=== PATIENT | female | born 1990 ===

== ENCOUNTER 2017-01-26 18:20 | Emergency (ER) | payer MEDICAID ==
[2017-01-26 18:31] VITALS: BP 119/71; PULSE 75; RESP 18; TEMP 97.8; O2SAT 99
--- NOTE | 2017-01-26 20:42 | ED PDOC ---
HPI: Abdomen Time Seen by Provider: 01/26/17 19:00 Chief Complaint (Nursing): Abdominal Pain Chief Complaint (Provider): Cramping abdominal pain History Per: Patient History/Exam Limitations: no limitations Onset/Duration Of Symptoms: Hrs Outside of [place] travel?: No Current Symptoms Are (Timing): Still Present Additional Complaint(s): The patient is a 26yo female, , states she had her IUD taken out 1.5 months ago and states she took a home test at home which was positive. She presents today for evaluation of lower abdominal cramping. Patient reports she informed her PCP Dr. Duong, who informed if symptoms persist, patient should visit the ED for further evaluation. She denies any nausea, vomiting, diarrhea, abnormal vaginal discharge or bleeding. She offers no other complaints. Abnormal Vaginal Bleeding: No : 2 Para: 1 Past Medical History Reviewed: Historical Data, Nursing Documentation, Vital Signs Vital Signs: Last Vital Signs Temp 97.8 F 01/26/17 18:28 Pulse 75 01/26/17 18:28 Resp 18 01/26/17 18:28 BP 119/71 01/26/17 18:28 Pulse Ox 99 01/26/17 22:53 - Medical History PMH: Asthma, Gastritis Denies: Migraine, Chronic Kidney Disease - Surgical History Surgical History: No Surg Hx - Family History Family History: States: No Known Family Hx - Home Medications Home Medications: Ambulatory Orders Medication Instructions Recorded Esomeprazole Magnesium [Nexium] 40 mg PO PRN PRN 03/26/16 Famotidine [Pepcid] 20 mg PO PRN PRN 03/26/16 Ondansetron ODT [Zofran ODT] 4 mg PO PRN PRN 03/26/16 Ondansetron ODT [Zofran ODT] 4 mg PO QID #20 odt 03/26/16 - Allergies Allergies/Adverse Reactions: Allergies Allergy/AdvReac Type Severity Reaction Status Date / Time Penicillins Allergy RASH Verified 01/26/17 18:28 Review of Systems ROS Statement: Except As Marked, All Systems Reviewed And Found Negative Gastrointestinal: Positive for: Abdominal Pain (lower abdomen). Negative for: Nausea, Vomiting, Diarrhea Genitourinary Female: Negative for: Vaginal Discharge, Vaginal Bleeding Physical Exam - Reviewed Nursing Documentation Reviewed: Yes Vital Signs Reviewed: Yes - Physical Exam Appears: Positive for: Non-toxic, No Acute Distress (no symptoms right now) Head Exam: Positive for: ATRAUMATIC, NORMAL INSPECTION, NORMOCEPHALIC Skin: Positive for: Warm, Dry Eye Exam: Positive for: Normal appearance Neck: Positive for: Supple Cardiovascular/Chest: Positive for: Regular Rate, Rhythm Respiratory: Positive for: Normal Breath Sounds. Negative for: Respiratory Distress Gastrointestinal/Abdominal: Positive for: Normal Exam, Soft. Negative for: Tenderness Neurologic/Psych: Positive for: Alert, Oriented. Negative for: Motor/Sensory Deficits - Laboratory Results Result Diagrams: 01/26/17 20:54 01/26/17 20:54 - ECG O2 Sat by Pulse Oximetry: 99 (RA) Pulse Ox Interpretation: Normal Medical Decision Making Medical Decision Making: Time: 1951 Impression: Early , rule out threatened Plan: -- Labs -- Urinalysis Reassess Time: 2249 US OB Transvaginal IMPRESSION: Live intrauterine , with no evidence of early complications. Labs reviewed and show no clinically significant abnormalities. Patient informed of US and lab findings. Advised to follow up with PCP and if symptoms worsen or new symptoms arise, patient to return to ED for immediate evaluation. Scribe Attestation: Documented by Radha Reyes acting as a scribe for Miguel Leger MD. Provider Attestation: All medical record entries made by the Scribe were at my direction and personally dictated by me. I have reviewed the chart and agree that the record accurately reflects my personal performance of the history, physical exam, medical decision making, and the department course for this patient. I have also personally directed, reviewed, and agree with the discharge instructions and disposition. Disposition - Clinical Impression Clinical Impression: Abdominal pain during - Patient ED Disposition Is Patient to be Admitted: No Counseled Patient/Family Regarding: Studies Performed, Diagnosis, Need For Followup - Disposition Referrals: [facility] [Outside] Disposition: Routine/Home Disposition Time: 21:00 Condition: IMPROVED Additional Instructions: follow up with Dr Clark this week return to the ED with any worsening or concerning symptoms Instructions: Abdominal Pain in (ED) Forms: [employer] (Swazi)
[2017-01-26 21:05] LABS: BASO % 0.2 % (0.0-2.0); EOS # 0.1 K/uL (0.0-0.7); EOS % 0.3 % (0.0-4.0); HEMATOCRIT 38.1 % (34.0-47.0); LYMPH # 3.4 K/uL (1.0-4.3); LYMPH % 19.1 % (20.0-40.0); MEAN CELL VOLUME 87.2 fl (81.0-99.0); MEAN CORPUSCULAR HEMOGLOBIN 29.3 pg (27.0-31.0); MEAN CORPUSCULAR HGB CONC 33.5 g/dL (33.0-37.0); MEAN PLATELET VOLUME 8.7 fl (7.2-11.7); MONO # 1.4 K/uL (0.0-0.8); NEUT # 12.9 K/uL (1.8-7.0); NEUT % 72.4 % (50.0-75.0); RED CELL DISTRIBUTION WIDTH 12.7 % (11.5-14.5); WHITE BLOOD COUNT 17.9 K/uL (4.8-10.8)
[2017-01-26 21:10] LABS: RBC URINE < 1 /hpf (0-3); URINE BACTERIA RARE (<OCC); URINE BILIRUBIN NEGATIVE (NEGATIVE); URINE BLOOD NEGATIVE (NEGATIVE); URINE COLOR YELLOW (YELLOW); URINE GLUCOSE (UA) NEG (Normal); URINE KETONE TRACE mg/dL (NEGATIVE); URINE LEUKOCYTE ESTERASE NEG Leu/uL (Negative); URINE PROTEIN NEGATIVE (NEGATIVE); URINE UROBILINOGEN 0.2-1.0 mg/dL (0.2-1.0); WBC URINE 1 /hpf (0-5)
[2017-01-26 21:22] LABS: ALB/GLOB RATIO 1.4 (1.0-2.1); ALKALINE PHOSPHATASE 57 U/L (38-126); ALT/SGPT 30 U/L (9-52); AST/SGOT 24 U/L (14-36); BILIRUBIN,TOTAL 0.4 mg/dl (0.2-1.3); BLOOD UREA NITROGEN 11 mg/dl (7-17); CALCIUM 9.4 mg/dL (8.4-10.2); CARBON DIOXIDE 23 mmol/L (22-30); CHLORIDE 105 mmol/L (98-107); GFR AFRICAN-AMERICAN > 60; GLUCOSE,RANDOM 88 mg/dL (65-105); POTASSIUM 3.8 MMOL/L (3.6-5.0); SODIUM 140 mmol/l (132-148); TOTAL PROTEIN 7.5 G/DL (6.3-8.2)
--- NOTE | 2017-01-26 22:23 | US ---
EXAM: US , Transvaginal CLINICAL HISTORY: 26 years old, female; Pain; Other: Cramps; Gestational age or lmp: Unknown; ; Additional info: Pelvic pain TECHNIQUE: Real-time transvaginal obstetrical ultrasound of the maternal pelvis and a first trimester with image documentation. Transvaginal imaging was used for better evaluation of the fetus and adnexa. COMPARISON: No relevant prior studies available. FINDINGS: Gestation: The uterus contains a normal gestational sac measuring 2.2 cm. A normal yolk sac is identified measuring 0.4 cm. A normal pole is identified measuring 6 mm. Embryonic/ cardiac activity is identified, at a rate of 129 beats per minute. Measurements correlate with a mean gestational age of 6 weeks 4 days. Placenta/amniotic fluid: Cannot be adequately evaluated due to the early gestational age. Uterus/cervix: The uterus measures 8.4 x 4.8 x 5.6 cm. The cervix is closed measuring 3.7 cm. There is a 1.4 cm septated cyst in the RIGHT ovary. Ovaries: The LEFT ovary measures 2.5 x 2.2 x 2.1 cm. The RIGHT ovary measures 3.6 x 1.5 x 2.4 cm. Duplex assessment demonstrates normal flow in both ovaries. Free fluid: No free fluid. IMPRESSION: Live intrauterine , with no evidence of early complications.
== END 2017-01-26 23:14 | disposition home or self-care (01) ==
LOC: H.ER 18:20
DX: O26.899 Other specified pregnancy related conditions, unspecified trimester (principal); Z88.0 Allergy status to penicillin

== ENCOUNTER 2017-04-08 21:29 | Emergency (ER) | payer MEDICAID ==
[2017-04-08] MEDS ORDERED: Albuterol 0.083% Inhal Sol (2.5 mg/3 mL) UD INH ONE (22:12)
--- NOTE | 2017-04-08 22:15 | ED PDOC ---
HPI: Asthma Time Seen by Provider: 04/08/17 21:52 Chief Complaint (Nursing): Cough, Cold, Congestion Chief Complaint (Provider): "asthma attack" History Per: Patient History/Exam Limitations: no limitations Onset/Duration Of Symptoms: Days (1) Current Symptoms Are (Timing): Still Present Associated Symptoms: Cough Additional History Per: Patient Additional Complaint(s): 26 y/o female, approximately 17 weeks gestation, history of asthma presents with productive cough x 1 day. Patient states she had two asthma attacks today ; was advised by her [employer] Breaker Dr. Duong to take Robitussin, Viola, and Albuterol treatment if the first two do not offer relief. Patient states she had to give herself two treatments today and still notes cough, post-tussive vomiting of phelgm, and chest tightness. Patient now notes "pressure" to lower abdomen, and was advised by her [employer] Breaker to come to ED. Denies fever, ear pain, nasal congestion, chest pain, shortness of breath, palpitations, vaginal bleeding/discharge, urinary symptoms, recent travel, sick contacts. Past Medical History Reviewed: Historical Data, Nursing Documentation, Vital Signs Vital Signs: Last Vital Signs Temp 98.4 F 04/08/17 21:44 Pulse 117 H 04/08/17 21:44 Resp 18 04/08/17 21:44 BP 143/69 04/08/17 21:44 Pulse Ox 100 04/08/17 21:44 - Medical History PMH: Asthma, Gastritis Denies: Migraine, Chronic Kidney Disease - Surgical History Surgical History: No Surg Hx - Family History Family History: States: No Known Family Hx - Living Arrangements Living Arrangements: With Family - Home Medications Home Medications: Ambulatory Orders Medication Instructions Recorded Esomeprazole Magnesium [Nexium] 40 mg PO PRN PRN 03/26/16 Famotidine [Pepcid] 20 mg PO PRN PRN 03/26/16 Ondansetron ODT [Zofran ODT] 4 mg PO PRN PRN 03/26/16 Ondansetron ODT [Zofran ODT] 4 mg PO QID #20 odt 03/26/16 Albuterol HFA [Ventolin HFA 90 1 - 2 puff IH Q6 PRN #1 inh 04/09/17 mcg/actuation (8 g)] predniSONE [Prednisone] 40 mg PO DAILY #8 tab 04/09/17 - Allergies Allergies/Adverse Reactions: Allergies Allergy/AdvReac Type Severity Reaction Status Date / Time Penicillins Allergy RASH Verified 04/08/17 21:47 Review of Systems ROS Statement: Except As Marked, All Systems Reviewed And Found Negative Respiratory: Positive for: Cough, Sputum Genitourinary Female: Positive for: Pelvic Pain Physical Exam - Reviewed Nursing Documentation Reviewed: Yes Vital Signs Reviewed: Yes - Physical Exam Appears: Positive for: Well, Non-toxic, No Acute Distress Head Exam: Positive for: ATRAUMATIC, NORMAL INSPECTION, NORMOCEPHALIC Skin: Positive for: Normal Color Eye Exam: Positive for: Normal appearance ENT: Positive for: Normal ENT Inspection Cardiovascular/Chest: Positive for: Regular Rate, Rhythm Respiratory: Positive for: Normal Breath Sounds Gastrointestinal/Abdominal: Positive for: Bowel Sounds, Soft, Tenderness (rlq, suprapubic discomfort to deep palpation). Negative for: Distended, Guarding, Rebound Back: Positive for: Normal Inspection Extremity: Positive for: Normal ROM Neurologic/Psych: Positive for: Alert, Oriented - ECG O2 Sat by Pulse Oximetry: 100 - Progress ED Course And Treament: flu, ob u/s, albuterol neb On re-eval, patient admits to slight improvement. Duoneb ordered EXAM: US Uterus, Limited EXAM DATE/TIME: 04/08/2017 10:11 PM CLINICAL HISTORY: 26 years old, female; Signs and symptoms; Lmp or gestational age (in weeks): Unknown; Other: Vomitting/nausea; ; Additional info: Approx 17 wks gestation, pelvic pressure TECHNIQUE: Real-time ultrasound of the maternal uterus (limited) with image documentation. COMPARISON: No relevant prior studies available. FINDINGS: Prior ultrasound report 01/26/2017 describes single live IUP 6 weeks 4 days. There is a live intrauterine . Measurements of the biparietal diameter, head circumference, abdominal circumference, femur length correspond to gestational age of 17 weeks 2 days. A heart rate of 163 beats per minute was obtained. That is posterior in location and appears normal. The cervix measures 5.3 cm and appears closed. The maternal ovaries are not identified. IMPRESSION: Single live IUP. On re-eval, patient states she is feeling better. Case discussed with Dr. Duong, agrees with plan to discharge with rx Prednisone (dose given in ED). Advised to continue Albuterol nebs PRN. Return precautions given. Although improved since arrival, repeat HR 110, which could be attributed to patient receiving 2 albuterol treatments in ED. Patient states she feels better. Stable for discharge Disposition - Clinical Impression Clinical Impression: Bronchospasm - Patient ED Disposition Is Patient to be Admitted: No Counseled Patient/Family Regarding: Studies Performed, Diagnosis, Need For Followup, Rx Given - Disposition Disposition: Routine/Home Disposition Time: 02:00 Condition: IMPROVED Additional Instructions: Call Dr. Duong's office in the morning to schedule follow up appointment. Take medication as directed. Return to ED for fever, worsening cough, chest pain, shortness of breath, or other concerning symptoms. Prescriptions: Albuterol HFA [Ventolin HFA 90 mcg/actuation (8 g)] 1 - 2 puff IH Q6 PRN #1 inh PRN Reason: Wheezing predniSONE [Prednisone] 40 mg PO DAILY #8 tab Instructions: Bronchospasm (ED) Forms: [facility] (Bhutanese), [facility] ED School/Work Excuse
[2017-04-08] MEDS ORDERED: Albuterol 0.042% Inhal Sol (1.25 mg/3 mL) UD ONE ×2 (22:18→22:26)
[2017-04-08 23:44] VITALS: BP 113/56; RESP 20
[2017-04-09 00:11] VITALS: TEMP 98.9
[2017-04-09] MEDS ORDERED: Albuterol-Ipratrop 3 mg / 0.5 (3 ml) UD IH STA (00:18)
--- NOTE | 2017-04-09 00:31 | US ---
EXAM: US Uterus, Limited EXAM DATE/TIME: 04/08/2017 10:11 PM CLINICAL HISTORY: 26 years old, female; Signs and symptoms; Lmp or gestational age (in weeks): Unknown; Other: Vomitting/nausea; ; Additional info: Approx 17 wks gestation, pelvic pressure TECHNIQUE: Real-time ultrasound of the maternal uterus (limited) with image documentation. COMPARISON: No relevant prior studies available. FINDINGS: Prior ultrasound report 01/26/2017 describes single live IUP 6 weeks 4 days. There is a live intrauterine . Measurements of the biparietal diameter, head circumference, abdominal circumference, femur length correspond to gestational age of 17 weeks 2 days. A heart rate of 163 beats per minute was obtained. That is posterior in location and appears normal. The cervix measures 5.3 cm and appears closed. The maternal ovaries are not identified. IMPRESSION: Single live IUP.
[2017-04-09 00:38] VITALS: O2SAT 100
[2017-04-09] MEDS ORDERED: Albuterol-Ipratrop 3 mg / 0.5 (3 ml) UD ONE (00:47)
[2017-04-09 02:09] VITALS: PULSE 110
== END 2017-04-09 02:05 | disposition home or self-care (01) ==
LOC: H.ER 21:29
DX: O99.512 Diseases of the respiratory system complicating pregnancy, second trimester (principal); J45.909 Unspecified asthma, uncomplicated; Z3A.17 17 weeks gestation of pregnancy; Z88.0 Allergy status to penicillin; Z36.9 Encounter for antenatal screening, unspecified

== ENCOUNTER 2017-06-15 19:11 | Inpatient (IN) | payer MEDICAID ==
[2017-06-15 19:31] VITALS: BMI 32.9
[2017-06-15 20:27] LABS: SQUAMOUS EPITHIAL 4 /hpf (0-5); URINE BACTERIA RARE (<OCC); URINE BILIRUBIN NEGATIVE (NEGATIVE); URINE BLOOD NEGATIVE (NEGATIVE); URINE CLARITY TURBID (Clear); URINE COLOR AMBER (YELLOW); URINE GLUCOSE (UA) NEG (Normal); URINE LEUKOCYTE ESTERASE NEG Leu/uL (Negative); URINE NITRATE NEGATIVE (NEGATIVE); URINE PROTEIN NEGATIVE (NEGATIVE); URINE UROBILINOGEN 0.2-1.0 mg/dL (0.2-1.0)
[2017-06-15] MEDS ORDERED: Lactated Ringer's 1,000 ML IV SCH ×2 (21:00→23:00)
[2017-06-15] MEDS ORDERED: Magnesium Sul 40GM/1L SW 40 GM/1,000 ML ML IV ONE (22:11)
[2017-06-15] MEDS ORDERED: Magnesium Sulfate 4 gm/100 ml 4 GM/100 ML BAG IV ONE (22:11)
[2017-06-15] MEDS ORDERED: AMPicillin 2 GM in Sodium Chloride 0.9% 100 ML IVPB STA (22:17)
[2017-06-15] MEDS ORDERED: AMPicillin 1 GM in Sodium Chloride 0.9% 100 ML IVPB SCH (22:30)
--- NOTE | 2017-06-15 22:32 | OBHP ---
Datetime: 06/15/2017 20:53 IP Adm Impression: , intrauterine IP Admit Plan: Admit to unit; Observation/Evaluation Admit Comment, IP Provider: 27 yo at 26+4 wks w/ EDC by 6+ wks u/s who reports sasha t she has had back pain that causes left leg numbness for a while now and then started cramping last night reports slight cramps now, denies VB and LOF, reports FM. Pt reports that she is currently fin ishing a macrobid course for bacteria in the urine. Pt reports that she was on brethine for PT ctxns w/ her last and delivered at 36 weeks. Pt reports that she has an appoint for cervical le ngthg measurment on ., 06/18/2017. 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 Duong Will admit her to L_D for PTL. Will give Betamethasome for FLM, will start IV magnesium, and IV V ancomycin for GBS prophylaxis. Plan discussed w/ pt. Extremities - PN: Normal Abdomen - PN: Normal Lungs - PN: Normal Heart - PN: Normal General - PN: Normal FHR - Baseline A Provider: 140s Contraction Comments Provider: irregular EGA AdmitDate IP: 17.6 Vital Signs Provider: Reviewed IP Chief Complaint: Uterine contractions NICHD Variability Prov Fetus A: Moderate 6-25bpm Dilatation, Provider: 0 Effacement, Provider: 0 Station, Provider: -3 Genitourinary Exam: Normal
--- NOTE | 2017-06-15 22:37 | OBADHP ---
Datetime: 06/15/2017 22:32 Admit Comment, IP Provider: 27 yo at 26+4 wks w/ EDC by 6+ wks u/s who reports sasha t she has had back pain that causes left leg numbness for a while now and then started cramping last night reports slight cramps now, denies VB and LOF, reports FM. Pt reports that tail bone hurts from lying on he stretcher. All other systems reviewed and negative. Pt reports that she is currently f inishing a macrobid course for bacteria in the urine. Pt reports that she was on brethine for PT ctx ns w/ her last and delivered at 36 weeks. Pt reports that she has an appoint for cervical length measurment on ., 06/18/2017. 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 Duong Will admit her to L_D for PTL. Will give Betamethasome for FLM, will start IV magnesium, and IV V ancomycin for GBS prophylaxis. Plan discussed w/ pt. Extremities - PN: Normal Abdomen - PN: Normal Back - PN: Normal Heart - PN: Normal Neurologic - PN: Normal General - PN: Normal FHR - Baseline A Provider: 140's Vital Signs Provider: Reviewed; Within Normal Limits IP Chief Complaint: Uterine contractions NICHD Variability Prov Fetus A: Moderate 6-25bpm Dilatation, Provider: 0 Effacement, Provider: 0 Station, Provider: -3 Genitourinary Exam: Normal EGA AdmitDate IP: 18.0 IP Adm Impression: , intrauterine IP Admit Plan: Admit to unit; Initiate labor protocol Datetime: 06/15/2017 20:53 Lungs - PN: Normal Contraction Comments Provider: irregular
[2017-06-16] MEDS: Betamethasone Soluspan 30 mg/5mL Inj Susp IM SCH ×2 (00:23→18:02)
[2017-06-16 00:34] LABS: BASO % 0.3 % (0.0-2.0); EOS # 0.1 K/uL (0.0-0.7); EOS % 0.5 % (0.0-4.0); HEMOGLOBIN 11.3 g/dL (12.0-16.0); LYMPH # 2.8 K/uL (1.0-4.3); MEAN CELL VOLUME 87.7 fl (81.0-99.0); MEAN CORPUSCULAR HEMOGLOBIN 29.7 pg (27.0-31.0); MEAN CORPUSCULAR HGB CONC 33.8 g/dL (33.0-37.0); MEAN PLATELET VOLUME 9.5 fl (7.2-11.7); MONO # 1.3 K/uL (0.0-0.8); MONO % 8.5 % (0.0-10.0); NEUT # 10.7 K/uL (1.8-7.0); NEUT % 71.7 % (50.0-75.0); RBC 3.83 Mil/uL (3.80-5.20); RED CELL DISTRIBUTION WIDTH 13.3 % (11.5-14.5); WHITE BLOOD COUNT 14.9 K/uL (4.8-10.8)
[2017-06-16 02:07] VITALS: O2SAT 100
[2017-06-16] MEDS ORDERED: Magnesium Sul 40GM/1L SW 40 GM/1,000 ML ML IV ONE (12:18)
--- NOTE | 2017-06-16 12:32 | OBPN ---
Datetime: 06/16/2017 12:23 IP Progress Plan Other: decrease MgSO4 and give second dose of beta this pm IP Progress Impression Other: UC arrested IP Progress Impression: labor IP Progress Plan: Continue present management Membranes, Provider: Intact Contraction Comments Provider: arrested FHR - Baseline A Provider: 140's Gestation - Est Wks by US: 26wks 5d IP Progress Note Comment: will decrease tocolysis since pt no longer feeling UC and tracing doesnt s how any. For second dose of steroids this pm Discussed plan with pt and agreed Dilatation, Provider: closed Effacement, Provider: none NICHD Decel Fetus A IP Provider: None Datetime: 06/15/2017 22:32 Vital Signs Provider: Reviewed; Within Normal Limits NICHD Variability Prov Fetus A: Moderate 6-25bpm Station, Provider: -3
[2017-06-16 23:16] VITALS: BP 120/77; PULSE 102; RESP 17; TEMP 97.7
== END 2017-06-16 18:30 | disposition home or self-care (01) | DRG 379 ==
LOC: H.EROB2 19:11 → H.L&D 22:59
PROVIDERS: ADMIT Specialist; ATTEND Specialist
PROC: 4A1HXCZ Monitoring of Products of Conception, Cardiac Rate, External Approach (ICD-10-PCS; principal; 2017-06-15)
DX: O60.03 Preterm labor without delivery, third trimester (principal); Z37.0 Single live birth; J45.909 Unspecified asthma, uncomplicated; Z3A.36 36 weeks gestation of pregnancy; O99.513 Diseases of the respiratory system complicating pregnancy, third trimester

== ENCOUNTER 2017-07-21 09:25 | Emergency (ER) | payer MEDICAID ==
[2017-07-21 10:50] VITALS: BMI 34.2
[2017-07-21 12:35] LABS: SQUAMOUS EPITHIAL 3 /hpf (0-5); URINE BACTERIA OCC (<OCC); URINE BILIRUBIN NEGATIVE (NEGATIVE); URINE BLOOD NEGATIVE (NEGATIVE); URINE CLARITY SLIGHTY-CLOUDY (Clear); URINE COLOR YELLOW (YELLOW); URINE GLUCOSE (UA) NEG (Normal); URINE LEUKOCYTE ESTERASE NEG Leu/uL (Negative); URINE PROTEIN NEGATIVE (NEGATIVE); URINE UROBILINOGEN 0.2-1.0 mg/dL (0.2-1.0)
[2017-07-21] MEDS ORDERED: Lactated Ringer's 1,000 ML IV SCH (13:00)
[2017-07-21 22:13] VITALS: BP 103/64; PULSE 89; RESP 18; TEMP 98.1; O2SAT 100
== END 2017-07-21 14:45 | disposition home or self-care (01) ==
LOC: H.EROB2 09:25 → H.EROB 10:01 → H.EROB2 14:45
DX: O47.03 False labor before 37 completed weeks of gestation, third trimester (principal); Z3A.31 31 weeks gestation of pregnancy; O26.93 Pregnancy related conditions, unspecified, third trimester; R10.2 Pelvic and perineal pain
CPT/HCPCS: 81003; 82731; 96360; 99283; J7120

== ENCOUNTER 2017-08-17 16:38 | Emergency (ER) | payer MEDICAID ==
[2017-08-17 17:23] VITALS: BMI 34.4
--- NOTE | 2017-08-17 21:07 | US ---
EXAM: US Duplex Bilateral Upper Extremity Veins CLINICAL HISTORY: 27 years old, female; Pain and signs and symptoms; Swelling of limb; Upper extremity, bilateral; Arn, upper and arm; Additional info: 35wks gestation with bilateral arm pain TECHNIQUE: Real-time duplex ultrasound scan of the bilateral upper extremity veins integrating B-mode two-dimensional vascular structure, Doppler spectral analysis, color flow Doppler imaging and compression. COMPARISON: No relevant prior studies available. FINDINGS: Right deep veins: No DVT in the right internal jugular, subclavian, axillary, or brachial veins. The veins are compressible with normal color flow and augmentation. Right superficial veins: No thrombus in the visualized right basilic and cephalic veins. Left deep veins: No DVT in the left internal jugular, subclavian, axillary, or brachial veins. The veins are compressible with normal color flow and augmentation. Left superficial veins: No thrombus in the visualized left basilic and cephalic veins. Soft tissues: No fluid collection. IMPRESSION: 1. No evidence of DVT within upper extremities.
[2017-08-17 22:15] LABS: BASO % 0.2 % (0.0-2.0); EOS # 0.1 K/uL (0.0-0.7); EOS % 0.8 % (0.0-4.0); HEMOGLOBIN 11.8 g/dL (12.0-16.0); LYMPH # 3.1 K/uL (1.0-4.3); LYMPH % 21.6 % (20.0-40.0); MEAN CELL VOLUME 84.5 fl (81.0-99.0); MEAN CORPUSCULAR HEMOGLOBIN 29.1 pg (27.0-31.0); MEAN CORPUSCULAR HGB CONC 34.5 g/dL (33.0-37.0); MEAN PLATELET VOLUME 9.2 fl (7.2-11.7); MONO % 7.3 % (0.0-10.0); NEUT % 70.1 % (50.0-75.0); RBC 4.06 Mil/uL (3.80-5.20); RED CELL DISTRIBUTION WIDTH 13.2 % (11.5-14.5); WHITE BLOOD COUNT 14.2 K/uL (4.8-10.8)
[2017-08-17 22:17] LABS: SQUAMOUS EPITHIAL < 1 /hpf (0-5); URINE BACTERIA RARE (<OCC); URINE BILIRUBIN NEGATIVE (NEGATIVE); URINE BLOOD NEGATIVE (NEGATIVE); URINE CLARITY CLEAR (Clear); URINE COLOR STRAW (YELLOW); URINE GLUCOSE (UA) NEG (Normal); URINE LEUKOCYTE ESTERASE NEG Leu/uL (Negative); URINE PROTEIN NEGATIVE (NEGATIVE); URINE UROBILINOGEN 0.2-1.0 mg/dL (0.2-1.0)
[2017-08-17 22:22] LABS: ALBUMIN 3.3 g/dL (3.5-5.0); ALT/SGPT 35 U/L (9-52); AST/SGOT 17 U/L (14-36); BLOOD UREA NITROGEN 4 mg/dl (7-17); CALCIUM 9.3 mg/dL (8.4-10.2); GFR AFRICAN-AMERICAN > 60; GFR NON-AFRICAN AMERICAN > 60; URIC ACID 3.5 mg/Dl (2.2-7.5)
--- NOTE | 2017-08-17 23:14 | OBHP ---
Datetime: 08/17/2017 20:05 IP Adm Impression: , intrauterine IP Admit Plan: Observation/Evaluation; Discharge home Admit Comment, IP Provider: 27 yo at 35+4 wks w/ EDC 09/17/2017 by 6 wks u/s, p/w pain and s welling in both arms and hands, started last Thu., Pt reporets that is she lays flat, the pain goes t o her shoulders. Pt reports pain R>L side. Pt reports that the sx have become increasingly worse, n ow waking her from sleep, causing tears. Pt denies any recent trauma. Pt receives her PNC w/ [facility] w/ / Ad. Pt was sent to hospital by Dr. London so that she can have bilateral upper ext remity dopplers done. Of note, pt has GDM, controled w/ metformin 250 BID. 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 U/s upper extremities arterial/ venous- negative PEC labs nl UA negative NST reactive Pt given wrist splints to wear as arm pain likely CTS Pt told she can tylenol for pain Pt has an appointment with Dr. Duong tomorrow Extremities - PN: Abnormal Abdomen - PN: Normal Back - PN: Normal Lungs - PN: Normal Heart - PN: Normal Thyroid - PN: Normal General - PN: Normal FHR - Baseline A Provider: 130's Contraction Comments Provider: Q2-3 EGA AdmitDate IP: 35.4 Vital Signs Provider: Reviewed IP Chief Complaint: Other NICHD Variability Prov Fetus A: Moderate 6-25bpm NICHD Accel Fetus A IP Provider: [id number] NICHD Decel Fetus A IP Provider: None Datetime: 07/21/2017 10:45 Breast - PN: Not Done Membranes, Provider: Intact Pool Provider: Negative IP Hx Assessment: The History has been Reviewed and is Current FHR Category Provider Fetus A: Category I Dilatation, Provider: 0 Effacement, Provider: 0 Datetime: 06/16/2017 12:23 Gestation - Est Wks by US: 26wks 5d Datetime: 06/15/2017 22:32 Neurologic - PN: Normal IP Indication for Induction: Not Applicable Station, Provider: -3 Genitourinary Exam: Normal
--- NOTE | 2017-08-17 23:16 | OBDCSUM ---
Datetime: 08/17/2017 23:08 Discharged to, Provider: Home Follow up at, Provider: Dr Duong Disch Instr Activity: Normal activity Disch Instr Diet: Regular Discharge Instructions, Provider: Routine instructions given Discharge Time: 08/17/2017 23:10 Follow up in weeks, Provider: 08/18/17 Disch Referrals: None Discharge Diagnosis Prov Other: B/l arm pain at 35+ weeks
[2017-08-18 03:50] VITALS: BP 120/64; PULSE 70; RESP 18; TEMP 98.3; O2SAT 100
--- NOTE | 2017-08-18 11:37 | US ---
PROCEDURE: HISTORY: 35wk gestation with bilateral arm pain COMPARISON: None available. TECHNIQUE: Grayscale and duplex Doppler evaluation of the bilateral upper extremities was performed. Report prepared by lead nuclear medicine technologist. FINDINGS: RIGHT UPPER EXTREMITY: * SCA : Peak Systolic Velocity - 126.2: Doppler Waveform: Triphasic.: * Axillary: Peak Systolic Velocity - 100.6: Doppler Waveform: Triphasic.: * Brachial o Peak Systolic Velocity - 62.9: Doppler Waveform: Triphasic.: o Second branchial artery right upper extremity peak systolic velocity 86.8 * Radial o Peak Systolic Velocity - 66.1: Doppler Waveform: Triphasic.: * Ulnar o Peak Systolic Velocity - 52.3: Doppler Waveform: Triphasic.: LEFT UPPER EXTREMITY: * SCA : Peak Systolic Velocity - 122.0: Doppler Waveform: Triphasic.: * Axillary: Peak Systolic Velocity - 72.8: Doppler Waveform: Triphasic.: * Brachial o Peak Systolic Velocity - 64.7: Doppler Waveform: Triphasic.: * Radial o Peak Systolic Velocity - 59.6: Doppler Waveform: Triphasic.: * Ulnar o Peak Systolic Velocity - 48.8: Doppler Waveform: Triphasic.: OTHER FINDINGS: IMPRESSION: There is no evidence of hemodynamically significant arterial insufficiency in both upper extremities.
== END 2017-08-17 23:10 | disposition home or self-care (01) ==
LOC: H.EROB2 16:38
DX: O26.93 Pregnancy related conditions, unspecified, third trimester (principal); M70.941 Unspecified soft tissue disorder related to use, overuse and pressure, right hand; M70.942 Unspecified soft tissue disorder related to use, overuse and pressure, left hand; O24.419 Gestational diabetes mellitus in pregnancy, unspecified control; Z3A.35 35 weeks gestation of pregnancy

== ENCOUNTER 2017-08-23 16:18 | Inpatient (IN) | payer MEDICAID ==
[2017-08-23 16:47] VITALS: BMI 35.5
[2017-08-23] MEDS ORDERED: Clindamycin 600mg/50ml D5W 600 MG/50 ML VIAL IVPB SCH (17:00)
[2017-08-23] MEDS ORDERED: Lactated Ringer's 1,000 ML IV SCH (17:15)
[2017-08-23 17:53] LABS: BASO % 0.3 % (0.0-2.0); EOS # 0.1 K/uL (0.0-0.7); EOS % 0.5 % (0.0-4.0); HEMOGLOBIN 11.8 g/dL (12.0-16.0); LYMPH # 2.9 K/uL (1.0-4.3); LYMPH % 19.7 % (20.0-40.0); MEAN CELL VOLUME 85.3 fl (81.0-99.0); MEAN CORPUSCULAR HEMOGLOBIN 29.1 pg (27.0-31.0); MEAN CORPUSCULAR HGB CONC 34.1 g/dL (33.0-37.0); MONO % 6.9 % (0.0-10.0); NEUT # 10.7 K/uL (1.8-7.0); NEUT % 72.6 % (50.0-75.0); RBC 4.07 Mil/uL (3.80-5.20); RED CELL DISTRIBUTION WIDTH 13.5 % (11.5-14.5); WHITE BLOOD COUNT 14.8 K/uL (4.8-10.8)
[2017-08-23] MEDS ORDERED: Fentanyl/Bupivacaine HCl 250 ML EPI ONE (18:23)
[2017-08-23 18:46] LABS: ALBUMIN 3.3 g/dL (3.5-5.0); ALT/SGPT 22 U/L (9-52); AST/SGOT 18 U/L (14-36); BLOOD UREA NITROGEN 4 mg/dl (7-17); CALCIUM 9.1 mg/dL (8.4-10.2); GFR AFRICAN-AMERICAN > 60; GFR NON-AFRICAN AMERICAN > 60
[2017-08-23] MEDS ORDERED: Oxytocin 30 units/LR 500ML 30 U/500 ML BAG IV ONE (20:37)
[2017-08-23 20:50] LABS: SQUAMOUS EPITHIAL 3 /hpf (0-5); URINE BILIRUBIN NEGATIVE (NEGATIVE); URINE BLOOD MODERATE (NEGATIVE); URINE CLARITY SLIGHTY-CLOUDY (Clear); URINE GLUCOSE (UA) NEG (Normal); URINE LEUKOCYTE ESTERASE NEG Leu/uL (Negative); URINE PROTEIN NEGATIVE (NEGATIVE); URINE UROBILINOGEN 0.2-1.0 mg/dL (0.2-1.0)
[2017-08-23 20:54] LABS: URINE COLOR YELLOW (YELLOW)
--- NOTE | 2017-08-23 22:30 | OBDS ---
MATERNAL INFORMATION Delivery Anesthesia: Epidural Estimated Blood Loss (ml): 250 Other Maternal Complications: labor Provider Comments: delivered a living baby boy appears AGA cried spontaneously 8/9, tight nuch al cord, AF clear Placenta complete and intact Small tear repaired as above Tolerated procedure well No complications Uterus contracted well LABOR SUMMARY EDC: 09/17/2017 00:00 No. Babies in Womb: 1 Attempted: No Labor Anesthesia: Epidural LABOR INFORMATION Reason for Induction: Not Applicable Onset of Labor: 08/23/2017 18:20 Cervical Ripening Agents: Other Other Ripening Agents: n/a Steroids Given: None Reason Steroids Not Administered: Not Applicable VAGINAL DELIVERY Episiotomy: None Laceration Extension: First Degree Laceration Type: Vaginal Laceration Repair: Yes Laceration Repair Note: small left tear below urethra repaired with 2 simple 4-0 chromic without any complications Sponge Count Correct: Yes Sharps Count Correct: Yes CSECTION DELIVERY Primary Indication: N/A Secondary Indication: N/A CSection Incision: N/A Uterine Closure: N/A BABY A INFORMATION Born in Route : No : N/A Forceps: N/A Vacuum Extraction: N/A Shoulder Dystocia : No PRESENTATION/POSITION BABY A Presentation: Cephalic Cephalic Presentation: Vertex Vertex Position: Left Occipital Anterior Breech Presentation: N/A PLACENTA INFORMATION BABY A Placenta Method of Delivery: Spontaneous
[2017-08-23] MEDS ORDERED: Oxycodone/Acetaminophen 5/325 mg Tab PO PRN (22:38)
--- NOTE | 2017-08-23 22:48 | OBADHP ---
Datetime: 08/23/2017 17:36 Admit Comment, IP Provider: This is 27 y/o F, , IUP at 36.3 comes to the [facility] c/o CTX every 4 to 6 mins. Reports good FM, Denies BV/LOF ROS unremarkable pt has GDM, controled w/ metformin 250 BID. 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 Duong --- JPatel, PGY-1 (Annotations: Data stored by CPN on behalf of user) Pelvic Type - PN: Adequate Extremities - PN: Normal Abdomen - PN: Normal Back - PN: Normal Lungs - PN: Normal Heart - PN: Normal Thyroid - PN: Normal Neurologic - PN: Normal HEENT - PN: Normal General - PN: Normal Presentation-Admit: cephalic FHR - Baseline A Provider: 130 Membranes, Provider: Intact Gestation - Est Wks by US: 36+ IP Hx Assessment: The History has been Reviewed and is Current Vital Signs Provider: Reviewed; Within Normal Limits IP Chief Complaint: Uterine contractions; Maternal discomfort NICHD Variability Prov Fetus A: Moderate 6-25bpm NICHD Accel Fetus A IP Provider: 15X15 FHR Category Provider Fetus A: Category I NICHD Decel Fetus A IP Provider: None Dilatation, Provider: 2 Effacement, Provider: 100 Station, Provider: -1 Genitourinary Exam: Normal EGA AdmitDate IP: 36.3 IP Adm Impression: , intrauterine ; Active labor IP Admit Plan: Admit to unit (Annotations: Data stored by CPN on behalf of user) Datetime: 08/17/2017 20:05 Contraction Comments Provider: Q2-3 Datetime: 07/21/2017 10:45 Breast - PN: Not Done Pool Provider: Negative
[2017-08-24] MEDS ORDERED: Oxycodone/Acetaminophen 5/325 mg Tab PO PRN (00:16)
[2017-08-24 07:19] LABS: HEMOGLOBIN 10.3 g/dL (12.0-16.0); MEAN CORPUSCULAR HEMOGLOBIN 29.1 pg (27.0-31.0); MEAN CORPUSCULAR HGB CONC 34.2 g/dL (33.0-37.0); RBC 3.55 Mil/uL (3.80-5.20); RED CELL DISTRIBUTION WIDTH 13.2 % (11.5-14.5)
--- NOTE | 2017-08-24 07:29 | OBPPN ---
Datetime: 08/24/2017 07:26 PP Pain Prov: Within normal limits PP Pain Prov comment: No SOB, chest or leg pains PP Nausea Prov: Denies PP Flatus Prov: Yes PP Nausea Prov comment: voiding well PP Breasts Prov: Normal PP Lungs Prov: Normal PP Abdomen/Uterus Prov: Abnormal PP Lochia Prov: Normal PP Vulva/Perineum Prov: Normal PP CVA Tenderness Prov: Normal PP Extremities Prov: Normal PP C/S Incision Prov: Not Applicable PP Progress Prov: Normal PP Comments Phys Exam Prov: breast not engorged NT, Abd soft not distended fundus firm below the umb NT Ext no calf tenderness PP Impression Prov: Normal progression PP Plan Prov: Continue present management PP Progress Note Prov: Pending CBC, continue PP care OOB and ambulation IP PP Procedures: None Vital Signs Provider PP: Reviewed
--- NOTE | 2017-08-24 12:19 | OBHP ---
Datetime: 08/23/2017 17:36 IP Adm Impression: , intrauterine IP Admit Plan: Admit to unit (Annotations: Data stored by CPN on behalf of user) Admit Comment, IP Provider: This is 27 y/o F, , IUP at 36.3 comes to the [facility] c/o CTX every 4 to 6 mins. Reports good FM, Denies BV/LOF ROS unremarkable pt has GDM, controled w/ metformin 250 BID. 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 Son --- JPatel, PGY-1 Attending Note: Pt seen and examined with the resident and she agrees with the above. Pelvic Type - PN: Adequate Extremities - PN: Normal Abdomen - PN: Normal Back - PN: Normal Lungs - PN: Normal Heart - PN: Normal Thyroid - PN: Normal Neurologic - PN: Normal HEENT - PN: Normal General - PN: Normal FHR - Baseline A Provider: 130 EGA AdmitDate IP: 36.3 Vital Signs Provider: Reviewed; Within Normal Limits IP Chief Complaint: Uterine contractions; Maternal discomfort NICHD Variability Prov Fetus A: Moderate 6-25bpm NICHD Accel Fetus A IP Provider: 15X15 FHR Category Provider Fetus A: Category I NICHD Decel Fetus A IP Provider: None Dilatation, Provider: 2 Effacement, Provider: 100 Station, Provider: -1 Genitourinary Exam: Normal
--- NOTE | 2017-08-25 09:44 | OBPPN ---
Datetime: 08/25/2017 09:37 PP Pain Prov: Within normal limits PP Pain Prov comment: No SOB, chest or leg pains PP Nausea Prov: Denies PP Flatus Prov: Yes PP BM Prov: Yes PP Nausea Prov comment: voiding well PP Breasts Prov: Normal PP Lungs Prov: Normal PP Abdomen/Uterus Prov: Abnormal PP Lochia Prov: Normal PP Vulva/Perineum Prov: Normal PP CVA Tenderness Prov: Normal PP Extremities Prov: Normal PP C/S Incision Prov: Not Applicable PP Progress Prov: Normal PP Comments Phys Exam Prov: breast not engorged Abd soft nd, fundus firm below the umb NT, ext no calf tenderness PP Impression Prov: Normal progression PP Plan Prov: Discharge PP Progress Note Prov: Had refused accuchecks " i am ok am not a diabetic" importance of this discus sed but still declined. D/c home with instructions IP PP Procedures: None Vital Signs Provider PP: Reviewed
--- NOTE | 2017-08-25 09:44 | OBDCSUM ---
Datetime: 08/25/2017 09:42 Discharged to, Provider: Home Follow up at, Provider: Dr Duong Disch Instr Activity: Bedrest; May be up to bathroom; May be up for meals; May Shower Disch Instr Diet: Regular Discharge Instructions, Provider: Routine instructions given Discharge Diagnosis, Provider: Labor; Delivery Follow up in weeks, Provider: 4-6 wks Contraception discussed, Prov: Yes Disch Activity Restrictions: No exercising; No lifting; No driving; Minimize walking; Minimize stair -climbing; No sexual activity; Nothing in vagina - [place], tampons, douche Discharge Comment, Provider: continue PNC vit and iron Contraception after Delivery: Undecided
[2017-08-25 17:06] VITALS: BP 119/65; PULSE 76; RESP 20; TEMP 97.7; O2SAT 100
== END 2017-08-25 12:17 | disposition home or self-care (01) | DRG 372 ==
LOC: H.EROB2 16:18 → H.L&D 17:02 → H.OB/GYN 08-24
PROVIDERS: ADMIT Specialist; ATTEND Specialist
PROC: 10E0XZZ Delivery of Products of Conception, External Approach (ICD-10-PCS; principal; 2017-08-23)
PROC: 0HQ9XZZ Repair Perineum Skin, External Approach (ICD-10-PCS; 2017-08-23)
PROC: 4A1HXCZ Monitoring of Products of Conception, Cardiac Rate, External Approach (ICD-10-PCS; 2017-08-23)
DX: O60.14X0 Preterm labor third trimester with preterm delivery third trimester, not applicable or unspecified (principal); O70.0 First degree perineal laceration during delivery; O69.1XX0 Labor and delivery complicated by cord around neck, with compression, not applicable or unspecified; Z3A.36 36 weeks gestation of pregnancy; O24.429 Gestational diabetes mellitus in childbirth, unspecified control; Z37.0 Single live birth

== ENCOUNTER 2018-04-21 08:50 | Emergency (ER) | payer MEDICAID ==
[2018-04-21 08:52] VITALS: BMI 33.8
[2018-04-21] MEDS ORDERED: Albuterol 0.083% Inhal Sol (2.5 mg/3 mL) UD INH ONE (09:35)
--- NOTE | 2018-04-21 09:46 | ED PDOC ---
History of Present Illness History of Present Illness: 27 y/o female with history of asthma presents to ER for evaluation of cough and slight fever associated with bodyaches and nausea onset 2 days. Patient reports the rain triggered the symptoms and caused worsening of symptoms yesterday with feeling chest tightness. She reports using her nebulizer and inhaler with no improvement. Patient states she feels phlegm in her throat but isn't coming out. She reports a fever of 101 degrees yesterday. Patient denies any headache or vomiting and states she did not receive the flu shot yet. PMD: Steven Vázquez HPI: Influenza Time Seen by Provider: 04/21/18 09:04 Chief Complaint: Flu-like Symptoms Chief Complaint (Provider): Flu-like Symptoms History Per: Patient Exam Limitations: no limitations Onset/Duration Of Symptoms: Days (x2) Symptoms include: fever, bodyaches, cough, chest pain. denies: headache, vomiting Past Medical History Reviewed: Historical Data, Nursing Documentation, Vital Signs Vital Signs: Last Vital Signs Temp 98.4 F 04/21/18 08:52 Pulse 86 04/21/18 08:52 Resp 20 04/21/18 08:52 BP 112/74 04/21/18 08:52 Pulse Ox 98 04/21/18 08:52 - Medical History PMH: Asthma, Gastritis Denies: Depression, Diabetes, HTN, Migraine, Chronic Kidney Disease - Surgical History Surgical History: No Surg Hx - Family History Family History: States: Unknown Family Hx - Social History Current smoker - smoking cessation education provided: No Alcohol: None Drugs: Denies - Home Medications Home Medications: Ambulatory Orders Medication Instructions Recorded Pnv with Ca,No.72/Iron/FA 1 tab PO DAILY 06/16/17 [ Vitamins Plus Low Iron] Azithromycin [Zithromax] 250 mg PO DAILY #6 tab 04/21/18 Oseltamivir Cap [Tamiflu] 75 mg PO BID #10 cap 04/21/18 - Allergies Allergies/Adverse Reactions: Allergies Allergy/AdvReac Type Severity Reaction Status Date / Time Penicillins Allergy SWELLING Verified 04/21/18 09:53 Review of Systems ROS Statement: Except As Marked, All Systems Reviewed And Found Negative Constitutional: Positive for: Fever Cardiovascular: Positive for: Chest Pain (tightness) Gastrointestinal: Positive for: Nausea. Negative for: Vomiting Musculoskeletal: Positive for: Other (Bodyaches) Neurological: Negative for: Headache Physical Exam - Reviewed Nursing Documentation Reviewed: Yes Vital Signs Reviewed: Yes - Physical Exam Appears: Positive for: Non-toxic, No Acute Distress Head Exam: Positive for: ATRAUMATIC, NORMOCEPHALIC Skin: Positive for: Normal Color, Warm, Dry Eye Exam: Positive for: Normal appearance ENT: Positive for: Normal ENT Inspection Neck: Positive for: Normal, Painless ROM, Supple Cardiovascular/Chest: Positive for: Regular Rate, Rhythm. Negative for: Murmur Respiratory: Positive for: Normal Breath Sounds. Negative for: Wheezing Gastrointestinal/Abdominal: Positive for: Normal Exam, Soft. Negative for: Tenderness Back: Positive for: Normal Inspection. Negative for: L CVA Tenderness, R CVA Tenderness Extremity: Positive for: Normal ROM. Negative for: Deformity Neurologic/Psych: Positive for: Alert, Oriented (x3) Medical Decision Making Medical Decision Making: Time: 934 Initial Impression: cough and fever rule out flu or asthma exacerbation Initial Plan: --Albuterol 1.5 mg INH --Motrin 600 mg PO --Influenza A B 1100 CXR FINDINGS: LUNGS: No active pulmonary disease. PLEURA: No significant pleural effusion identified. No pneumothorax apparent. CARDIOVASCULAR: No aortic atherosclerotic calcification present. Normal cardiac size. No pulmonary vascular congestion. OSSEOUS STRUCTURES: No significant abnormalities. VISUALIZED UPPER ABDOMEN: Normal. OTHER FINDINGS: None. IMPRESSION: No active disease. No definitive consolidative infiltrates seen. The left infrahilar bronchovascular markings are slightly more conspicuous than those on the right summation of soft tissues can result in this. No definite consolidation here on the lateral view noted. Clinical follow-up advised. 1210 Patient is aware of CXR results, stable for discharge with a prescription of tamiflu and zpack (given high rate of false negatives). pt will follow up with her pcp an outpatient. Scribe Attestation: Documented by Liss Brock, acting as a scribe for Miguel Leger MD. Provider Scribe Attestation: All medical record entries made by the Scribe were at my direction and personally dictated by me. I have reviewed the chart and agree that the record accurately reflects my personal performance of the history, physical exam, medical decision making, and the department course for this patient. I have also personally directed, reviewed, and agree with the discharge instructions and disposition. - ECG O2 Sat by Pulse Oximetry: 98 (RA) Pulse Ox Interpretation: Normal Disposition - Clinical Impression Clinical Impression: Flu-like symptoms - Patient ED Disposition Is Patient to be Admitted: No Counseled Patient/Family Regarding: Studies Performed, Diagnosis, Need For Followup - Disposition Disposition: Routine/Home Disposition Time: 12:10 Condition: IMPROVED Additional Instructions: follow up with your primary doctor in 1-2 days return to the ED with any worsening or concerning symptoms Prescriptions: Azithromycin [Zithromax] 250 mg PO DAILY #6 tab Oseltamivir Cap [Tamiflu] 75 mg PO BID #10 cap Instructions: Flu, Adult (DC) Forms: [employer] (Kiswahili)
[2018-04-21] MEDS ORDERED: Albuterol 0.083% Inhal Sol (2.5 mg/3 mL) UD ONE (09:56)
--- NOTE | 2018-04-21 11:04 | RAD ---
Date of service: 04/21/2018 HISTORY: cough COMPARISON: 01/10/2013 TECHNIQUE: Chest PA and lateral FINDINGS: LUNGS: No active pulmonary disease. PLEURA: No significant pleural effusion identified. No pneumothorax apparent. CARDIOVASCULAR: No aortic atherosclerotic calcification present. Normal cardiac size. No pulmonary vascular congestion. OSSEOUS STRUCTURES: No significant abnormalities. VISUALIZED UPPER ABDOMEN: Normal. OTHER FINDINGS: None. IMPRESSION: No active disease. No definitive consolidative infiltrates seen. The left infrahilar bronchovascular markings are slightly more conspicuous than those on the right summation of soft tissues can result in this. No definite consolidation here on the lateral view noted. Clinical follow-up advised.
[2018-04-21 12:25] VITALS: BP 92/65; PULSE 74; RESP 18; TEMP 98.3
[2018-04-22 11:26] VITALS: O2SAT 98
== END 2018-04-21 12:30 | disposition home or self-care (01) ==
LOC: H.ER 08:50
DX: J11.1 Influenza due to unidentified influenza virus with other respiratory manifestations (principal)

== ENCOUNTER 2018-05-17 11:35 | Emergency (ER) | payer MEDICAID ==
[2018-05-17 11:39] VITALS: BMI 30.6
[2018-05-17 11:40] VITALS: TEMP 98; O2SAT 100
[2018-05-17] MEDS ORDERED: Sodium Chloride 0.9% 1,000 ML IV STA (13:00)
--- NOTE | 2018-05-17 13:39 | ED PDOC ---
HPI: Abdomen Time Seen by Provider: 05/17/18 12:25 Chief Complaint (Nursing): Abdominal Pain Chief Complaint (Provider): Abdominal pain History Per: Patient History/Exam Limitations: no limitations Onset/Duration Of Symptoms: Sudden Onset Outside of [place] travel?: No Current Symptoms Are (Timing): Still Present Location Of Pain/Discomfort: Epigastric Additional History Per: Patient Additional Complaint(s): 27yo female, comes to ER reporting sudden onset nausea, vomiting and diarrhea since 3am. Patient reports 8 episodes of vomiting and multiple episodes of watery diarrhea. She reports a history of gastritis and states she had some epigastric abdominal pain. She attempted to take maalox for symptomatic relief, however states the vomited up the medication. Otherwise, no fever, chills, chest pain, changes in diet or recent foreign travels. PMD: Dr. Vázquez Past Medical History Reviewed: Historical Data, Nursing Documentation, Vital Signs Vital Signs: Last Vital Signs Temp 98 F 05/17/18 11:39 Pulse 91 H 05/17/18 11:39 Resp 17 05/17/18 11:39 BP 106/72 05/17/18 11:39 Pulse Ox 100 05/17/18 11:39 - Medical History PMH: Asthma, Gastritis Denies: Depression, Diabetes, HTN, Migraine, Chronic Kidney Disease - Surgical History Surgical History: No Surg Hx - Family History Family History: States: No Known Family Hx - Social History Current smoker - smoking cessation education provided: No Alcohol: None Drugs: Denies - Home Medications Home Medications: Ambulatory Orders Medication Instructions Recorded Pnv with Ca,No.72/Iron/FA 1 tab PO DAILY 06/16/17 [ Vitamins Plus Low Iron] Azithromycin [Zithromax] 250 mg PO DAILY #6 tab 04/21/18 Oseltamivir Cap [Tamiflu] 75 mg PO BID #10 cap 04/21/18 Ciprofloxacin [Cipro] 500 mg PO BID #14 tab 05/17/18 Ondansetron ODT [Zofran ODT] 4 mg PO Q6 PRN #10 odt 05/17/18 RX: traMADol [Ultram] 50 mg PO TID PRN #12 tab 05/17/18 metroNIDAZOLE [Flagyl] 500 mg PO TID #21 tab 05/17/18 - Allergies Allergies/Adverse Reactions: Allergies Allergy/AdvReac Type Severity Reaction Status Date / Time Penicillins Allergy SWELLING Verified 04/21/18 09:53 ketorolac [From Toradol] AdvReac RASH Verified 05/17/18 14:29 Review of Systems ROS Statement: Except As Marked, All Systems Reviewed And Found Negative Constitutional: Negative for: Fever, Chills Cardiovascular: Negative for: Chest Pain Respiratory: Negative for: Shortness of Breath Gastrointestinal: Positive for: Nausea, Vomiting, Abdominal Pain, Diarrhea Physical Exam - Reviewed Nursing Documentation Reviewed: Yes Vital Signs Reviewed: Yes - Physical Exam Appears: Positive for: Non-toxic Head Exam: Positive for: ATRAUMATIC, NORMAL INSPECTION, NORMOCEPHALIC Skin: Positive for: Normal Color Eye Exam: Positive for: Normal appearance ENT: Positive for: Other (moist mucosa) Neck: Positive for: Normal, Supple Cardiovascular/Chest: Positive for: Regular Rate, Rhythm Respiratory: Positive for: Normal Breath Sounds Gastrointestinal/Abdominal: Positive for: Tenderness (minimal epigastric tenderness). Negative for: Mass, Guarding, Rebound Back: Positive for: Normal Inspection Extremity: Positive for: Normal ROM Neurologic/Psych: Positive for: Alert, Oriented. Negative for: Motor/Sensory Deficits - Laboratory Results Result Diagrams: 05/17/18 13:50 05/17/18 13:50 - ECG O2 Sat by Pulse Oximetry: 100 (RA) Pulse Ox Interpretation: Normal Medical Decision Making Medical Decision [place] female with sudden onset abdominal pain, vomiting and diarrhear uel out gastroenteritis R/o viral illness Plan: -- Labs -- IV fluids -- Zofran 4mg IV -- Pepcid 20mg IV 1530 Labs reviewed, patient with elevated white count at 12.6 CT Abdomen/Pelvis w/ PO & IV contrast ordered 1600 pt aware of plan, questions answered 1700 Patient signed out to Dr. Olivia pending CT scan, reassessment and final disposition. Scribe Attestation: Documented by Radha Reyes acting as a scribe for Miguel Leger MD Provider Attestation: All medical record entries made by the Scribe were at my direction and personal ly dictated by me. I have reviewed the chart and agree that the record accurately reflects my personal performance of the history, physical exam, medical decision making, and the department course for this patient. I have also personally directed, reviewed, and agree with the discharge instructions and disposition. Disposition - Clinical Impression Clinical Impression: Colitis, Abdominal discomfort, Vomiting - Patient ED Disposition Is Patient to be Admitted: Transfer of Care - Disposition Referrals: David Freeman MD, PhD [Staff Provider] - Disposition: Transfer of Care Disposition Time: 17:00 Condition: STABLE Additional Instructions: Take medications as directed. Return to ER for any new or worsening symptoms. Prescriptions: Ciprofloxacin [Cipro] 500 mg PO BID #14 tab metroNIDAZOLE [Flagyl] 500 mg PO TID #21 tab Ondansetron ODT [Zofran ODT] 4 mg PO Q6 PRN #10 odt PRN Reason: Nausea/Vomiting RX: traMADol [Ultram] 50 mg PO TID PRN #12 tab PRN Reason: Pain, Moderate (4-7) Instructions: Acute Abdomen (Belly Pain), Adult (DC), Colitis (DC) Forms: [employer] ([place]an) Patient Signed Over To: David Olivia III
[2018-05-17 14:07] LABS: BASO % 0.2 % (0.0-2.0); EOS # 0.1 K/uL (0.0-0.7); EOS % 0.5 % (0.0-4.0); HEMOGLOBIN 14.8 g/dL (12.0-16.0); LYMPH # 1.4 K/uL (1.0-4.3); MEAN CELL VOLUME 86.3 fl (81.0-99.0); MEAN CORPUSCULAR HEMOGLOBIN 29.2 pg (27.0-31.0); MEAN CORPUSCULAR HGB CONC 33.8 g/dL (33.0-37.0); MEAN PLATELET VOLUME 8.7 fl (7.2-11.7); MONO # 0.7 K/uL (0.0-0.8); MONO % 5.6 % (0.0-10.0); NEUT # 10.3 K/uL (1.8-7.0); NEUT % 82.7 % (50.0-75.0); NRBC % 0.1 % (0.0-0.0); RBC 5.08 Mil/uL (3.80-5.20); RED CELL DISTRIBUTION WIDTH 12.8 % (11.5-14.5); WHITE BLOOD COUNT 12.5 K/uL (4.8-10.8)
[2018-05-17 14:21] LABS: ALB/GLOB RATIO 1.3 (1.0-2.1); ALBUMIN 4.7 g/dL (3.5-5.0); ALT/SGPT 18 U/L (9-52); AST/SGOT 29 U/L (14-36); BLOOD UREA NITROGEN 16 mg/dl (7-17); CALCIUM 9.6 mg/dL (8.4-10.2); GFR NON-AFRICAN AMERICAN > 60; LIPASE 46 U/L (23-300)
[2018-05-17] MEDS ORDERED: Iohexol 240 (50 ml) ONE (15:41)
[2018-05-17] MEDS: Iohexol 240 (50 ml) PO ONE ×2 (15:43→15:56)
[2018-05-17] MEDS ORDERED: Morphine 4 MG/ML VIAL IV ONE (15:49)
[2018-05-17] MEDS ORDERED: Morphine 4 MG/ML VIAL ONE (15:55)
[2018-05-17 16:01] VITALS: RESP 20
[2018-05-17] MEDS ORDERED: Iohexol 300 100 ML IJ ONE (17:11)
[2018-05-17] MEDS ORDERED: Sodium Chloride 0.9% 50 ML IV ONE (17:11)
--- NOTE | 2018-05-17 17:24 | ED PDOC ---
- Laboratory Results Result Diagrams: 05/17/18 13:50 05/17/18 13:50 Lab Results: Total Bilirubin 0.7 mg/dl (0.2-1.3) 05/17/18 13:50 AST 29 U/L (14-36) 05/17/18 13:50 ALT 18 U/L (9-52) 05/17/18 13:50 Alkaline Phosphatase 65 U/L (38-126) 05/17/18 13:50 Total Protein 8.4 G/DL (6.3-8.2) H 05/17/18 13:50 Albumin 4.7 g/dL (3.5-5.0) 05/17/18 13:50 Globulin 3.7 gm/dL (2.2-3.9) 05/17/18 13:50 Albumin/Globulin Ratio 1.3 (1.0-2.1) 05/17/18 13:50 Lipase 46 U/L (23-300) 05/17/18 13:50 - ECG O2 Sat by Pulse Oximetry: 100 (RA) Pulse Ox Interpretation: Normal Medical Decision Making Medical Decision Making: Time: 1699 -- Patient endorsed to me by Dr. Leger, pending CT scan, reassessment and final disposition. Time: 1833 CT RESULTS FINDINGS: LOWER THORAX: No visible consolidation, pleural effusion, or pneumothorax. LIVER: Hepatomegaly. GALLBLADDER AND BILE DUCTS: Unremarkable. PANCREAS: Unremarkable. SPLEEN: Unremarkable. ADRENALS: Unremarkable. KIDNEYS AND URETERS: The kidneys enhance symmetrically. No hydronephrosis or obstructing renal calculus. BLADDER: The urinary bladder appears unremarkable. REPRODUCTIVE: Uterus is present. APPENDIX: The appendix appears within normal limits of caliber. No secondary signs of acute appendicitis. BOWEL: The stomach is nondistended. The bowel loops appear within normal limits of caliber without evidence of intestinal obstruction. The transverse colon appears mildly thickened possibly exaggerated by under distension however correlate clinically for possibility of colitis (i.e. infectious/inflammatory) PERITONEUM: No significant free fluid. No definite free air. LYMPH NODES: No bulky lymphadenopathy identified. VASCULATURE: No aortic aneurysm. No atherosclerotic calcification or mural plaque present. BONES: No acute osseous abnormality is detected. OTHER FINDINGS: None. IMPRESSION: Hepatomegaly. Mildly thickened transverse colon possibly exaggerated by under distension however correlate clinically for possibility of colitis (i.e. infectious/inflammatory) Scribe Attestation: Documented by Trina Orlando, acting as a scribe for David Olivia DO Provider Scribe Attestation: All medical record entries made by the Scribe were at my direction and personally dictated by me. I have reviewed the chart and agree that the record accurately reflects my personal performance of the history, physical exam, medical decision making, and the department course for this patient. I have also personally directed, reviewed, and agree with the discharge instructions and disposition. Disposition Counseled Patient/Family Regarding: Studies Performed - Clinical Impression Clinical Impression: Colitis, Abdominal discomfort, Vomiting - POA Present On Arrival: None - Disposition Referrals: David Freeman MD, PhD [Staff Provider] - Disposition: Routine/Home Disposition Time: 19:46 Condition: STABLE Additional Instructions: Take medications as directed. Return to ER for any new or worsening symptoms. Prescriptions: Ciprofloxacin [Cipro] 500 mg PO BID #14 tab metroNIDAZOLE [Flagyl] 500 mg PO TID #21 tab Ondansetron ODT [Zofran ODT] 4 mg PO Q6 PRN #10 odt PRN Reason: Nausea/Vomiting traMADol [Ultram] 50 mg PO TID PRN #12 tab PRN Reason: Pain, Moderate (4-7) Instructions: Colitis (DC), Acute Abdomen (Belly Pain), Adult (DC) Forms: [employer] (Australian)
--- NOTE | 2018-05-17 18:43 | CT ---
PROCEDURE: CT Abdomen and Pelvis with oral and IV contrast. HISTORY: abd pain COMPARISON: CT abdomen and pelvis with contrast performed 09/13/14 TECHNIQUE: Contiguous axial images of the abdomen and pelvis. Oral and IV contrast was administered. Coronal and Sagittal reformats generated and reviewed. Contrast dose: 95 mL Omnipaque 300 IV Radiation dose: Total exam DLP = 744.16 mGy-cm. This CT exam was performed using one or more of the following dose reduction techniques: Automated exposure control, adjustment of the mA and/or kV according to patient size, and/or use of iterative reconstruction technique. FINDINGS: LOWER THORAX: No visible consolidation, pleural effusion, or pneumothorax. LIVER: Hepatomegaly. GALLBLADDER AND BILE DUCTS: Unremarkable. PANCREAS: Unremarkable. SPLEEN: Unremarkable. ADRENALS: Unremarkable. KIDNEYS AND URETERS: The kidneys enhance symmetrically. No hydronephrosis or obstructing renal calculus. BLADDER: The urinary bladder appears unremarkable. REPRODUCTIVE: Uterus is present. APPENDIX: The appendix appears within normal limits of caliber. No secondary signs of acute appendicitis. BOWEL: The stomach is nondistended. The bowel loops appear within normal limits of caliber without evidence of intestinal obstruction. The transverse colon appears mildly thickened possibly exaggerated by under distension however correlate clinically for possibility of colitis (i.e. infectious/inflammatory) PERITONEUM: No significant free fluid. No definite free air. LYMPH NODES: No bulky lymphadenopathy identified. VASCULATURE: No aortic aneurysm. No atherosclerotic calcification or mural plaque present. BONES: No acute osseous abnormality is detected. OTHER FINDINGS: None. IMPRESSION: Hepatomegaly. Mildly thickened transverse colon possibly exaggerated by under distension however correlate clinically for possibility of colitis (i.e. infectious/inflammatory)
[2018-05-17 19:27] VITALS: BP 100/59; PULSE 89
== END 2018-05-17 19:58 | disposition home or self-care (01) ==
LOC: H.ER 11:35
DX: K52.9 Noninfective gastroenteritis and colitis, unspecified (principal); R10.13 Epigastric pain; R11.10 Vomiting, unspecified; Z88.0 Allergy status to penicillin
CPT/HCPCS: 74177; 80053; 81025; 83690; 85025; 96361; 96374; 96375; 99285; J2270; J2405; J7030; Q9966; Q9967